=== PATIENT | male | born 1960 | race Caucasian/White ===

== ENCOUNTER → 2017-02-02 | Day surgery (SDC) | payer OTHER ==
[~2017-02-02] MED LIST: CALAN40 MG; FARXIGA PO; FENOFIBRATE145 MG PO; FENTANYL CITRATE/PF 100MCG/2 ML INJ ONE; HYOSCYAMINE SULFATE 0.5 MG/ML AMP ONE; LEXAPRO10 MG PO; METFORMIN HCL500 MG PO; METOPROLOL SUCC50 MG PO; MIDAZOLAM HCL 2 MG/2 ML VIAL ONE; NIFEDIPINE ER30 M1 PO; PROPOFOL IV EMULSION 10 MG/ML 50 ML VIAL ONE; Z.0.ALAGESIC CAPSU1; Z.0.AVAPRO150 MG PO; Z.0.CATAPRES0.1 MG PO
--- NOTE | 2017-02-02 13:06 | Operative Report ---
DATE OF PROCEDURE: February 02, 2017 REFERRING PHYSICIAN: Carter Martinez MD PROCEDURE PERFORMED: Colonoscopy and polypectomy with biopsies. INDICATIONS FOR COLONOSCOPY: Colorectal cancer screening, abnormal CT scan of abdomen, recurrent diverticulitis. MEDICATION: Patient was done under MAC. Please see anesthesiologist's note. PROCEDURE: With the patient in the left lateral decubitus position, the flexible fiberoptic Olympus colonoscope was inserted into the rectum with ease and advanced all the way to the cecum. A large cecal mass was noted, and that was biopsied. The scope was then withdrawn slowly, and an approximately 8-mm submucosal polypoid lesion was noted in the mid-ascending colon, and that was biopsied. One polyp was snared from the proximal transverse colon, and 2 large sessile polypoid lesions up to approximately 1.2 cm in size were removed per snare electrocautery, and the polypectomy site was tattooed. Two polyps were removed per snare electrocautery from the descending colon. Diverticular disease was noted to involve the distal descending and the sigmoid colon. Three polyps were snared and 1 polyp was hot biopsied from the sigmoid colon. The rectum grossly appeared to be within normal limits. The scope was then retroflexed into the distal rectum, and small internal hemorrhoids were noted, none of which was actively bleeding. The scope was then straightened out. The rectosigmoid area as well as the distal rectal area were decompressed. The scope was subsequently withdrawn. Patient tolerated the procedure well. IMPRESSION 1. Cecal mass, biopsied. 2. Ascending colon rule out lipoma. 3. Proximal transverse colon polyp snared times 1. 4. Distal transverse colon polyps, snared times 2, polypectomy site tattooed. 5. Descending colon polyps, snared times 2. 6. Diverticulosis. 7. Sigmoid colon polyps times 4, three polyps snared and one polyp hot biopsied. 8. Internal hemorrhoids, none actively bleeding. PLAN: Follow up histology. Initiate high-fiber, low-fat diet. Initiate high-fiber supplement. Patient will need a general surgical consult. Timing of followup colonoscopy pending pathology report. Job#: [id number] cc:MD RIKI TREVINO MD
== END | disposition home or self-care (01) ==
LOC: OR 08:49
PROVIDERS: ATTEND Internal Medicine Gastroenterology
DX: K57.92 Diverticulitis of intestine, part unspecified, without perforation or abscess without bleeding (principal); C18.0 Malignant neoplasm of cecum; D12.2 Benign neoplasm of ascending colon; D12.3 Benign neoplasm of transverse colon; D12.4 Benign neoplasm of descending colon; D12.5 Benign neoplasm of sigmoid colon; K64.8 Other hemorrhoids; G47.33 Obstructive sleep apnea (adult) (pediatric); I10 Essential (primary) hypertension; R53.83 Other fatigue; E11.9 Type 2 diabetes mellitus without complications; F41.9 Anxiety disorder, unspecified; F17.210 Nicotine dependence, cigarettes, uncomplicated; Z01.810 Encounter for preprocedural cardiovascular examination; Z68.35 Body mass index [BMI] 35.0-35.9, adult
CPT/HCPCS: 36415; 45380; 45381; 45384; 45385; 82948; 93005; J1980; J2250